=== PATIENT | female | born 1945 | race Caucasian/White ===

== ENCOUNTER 2017-09-11 12:56 | Emergency (ER) | payer MEDICARE, BC ==
[2017-09-11 16:30] VITALS: BP 154/93
--- NOTE | 2017-09-11 17:00 | UC ---
Respiratory Complaint HPI - HPI Summary HPI Summary: C/O sore throat, cough, congestion, going off/ on for [address] difficulty swollowing - History of Current Complaint Chief Complaint: UCGeneralIllness Stated Complaint: ST/HEAD COLD Time Seen by Provider: 09/11/17 16:54 Hx Obtained From: Patient Onset/Duration: Sudden Onset, Lasting Weeks - 3, Still Present Severity Initially: Mild Severity Currently: Moderate Character: Cough: Productive - occasionally. Mostly PND Aggravating Factors: Nothing Alleviating Factors: Nothing Associated Signs And Symptoms: Positive: Chills, URI, Nasal Congestion. Negative: Wheezing Related History: Seasonal Allergies - Allergies/Home Medications Allergies/Adverse Reactions: Allergies Allergy/AdvReac Type Severity Reaction Status Date / Time No Known Allergies Allergy Verified 09/11/17 16:30 Home Medications: Home Medications Calcium W/ Vitamins D & K [Calcium + D + K 750-500-40 mg-Unt-Mcg] 1 tab PO DAILY 09/11/17 [History Confirmed 09/11/17] Fluticasone Furoate-Vilanterol [Breo Ellipta 200-25 Mcg/INH] 1 inh IN DAILY [History Confirmed 09/11/17] Melatonin 10 mg PO BEDTIME 09/11/17 [History Confirmed 09/11/17] Multiple Vitamins W/ Minerals [Hair Skin and Nails Formu] 1 tab PO DAILY [History Confirmed 09/11/17] PMH/Surg Hx/FS Hx/Imm Hx Endocrine History: Diabetes Cardiovascular History: Hypertension Respiratory History: Asthma - Surgical History Surgical History: Yes Surgery Procedure, Year, and Place: 7-8 years ago [facility]- benign Bx-Left breast. BACK SURGERY , RUPTURED DISC -[facility]. TEAR DUCT SURGERY. FALLOPIAN TUBES REMOVED FOR CYSTS. TUBAL LIGATION. TONSILLECTOMY. VARICOSE VEIN SURGERY - Family History Known Family History: Positive: Cardiac Disease, Hypertension, Diabetes - Social History Occupation: Employed Part-time Lives: With Family Alcohol Use: Occasionally Alcohol Amount: 4 oz wine nightly Substance Use Type: None Smoking Status (MU): Never Smoked Tobacco Have You Smoked in the Last Year: No - Immunization History Most Recent Influenza Vaccination: 07/01/14 Review of Systems Constitutional: Chills, Fatigue ENT: Sore Throat, Nasal Discharge Respiratory: Cough Is Patient Immunocompromised?: No All Other Systems Reviewed And Are Negative: Yes Physical Exam Triage Information Reviewed: Yes Appearance: No Pain Distress, Well-Nourished, Ill-Appearing Vital Signs: Initial Vital Signs Temp 97.8 F 09/11/17 16:27 Pulse 83 09/11/17 16:27 Resp 16 09/11/17 16:27 BP 154/93 09/11/17 16:27 Pulse Ox 96 09/11/17 16:27 Vital Signs Reviewed: Yes Eyes: Positive: Conjunctiva Clear ENT: Positive: Pharyngeal erythema, TMs normal Neck: Positive: Tenderness @ - anterior cervical nodes, Enlarged Nodes @ Respiratory: Positive: Lungs clear, Wheezing - expiratory wheeze with coughing. Cardiovascular Exam: Normal Musculoskeletal Exam: Normal Neurological Exam: Normal Psychological Exam: Normal Skin Exam: Normal UC Diagnostic Evaluation - Laboratory O2 Sat by Pulse Oximetry: 96 Respiratory Course/Dx - Differential Dx/Diagnosis Differential Diagnosis/HQI/PQRI: Bronchitis, Laryngitis, Lower Resp Infection, Sinusitis Provider Diagnoses: Acute URI. Acute bronchospasm. Streptococcal pharyngitis Discharge - Discharge Plan Condition: Stable Disposition: HOME Prescriptions: Amoxicillin PO (*) [Amoxicillin 875 MG (*)] 875 mg PO BID #20 tab predniSONE TAB* [Deltasone TAB*] 20 mg PO DAILY #18 tab Patient Education Materials: Strep Throat (ED), Bronchospasm (ED), Prednisone ( By mouth), Amoxicillin (By mouth) Referrals: Amada Koenig [Primary Care Provider] -
== END 2017-09-11 17:45 | disposition home or self-care (01) ==
LOC: UCCORT 12:56
DX: J06.9 Acute upper respiratory infection, unspecified (principal); J98.01 Acute bronchospasm; J02.0 Streptococcal pharyngitis; J45.909 Unspecified asthma, uncomplicated; I10 Essential (primary) hypertension; Z72.89 Other problems related to lifestyle
CPT/HCPCS: 87651; 99212; G0463

== ENCOUNTER 2020-03-28 16:50 | Inpatient (IN) ==
[2020-03-28 18:02] LABS: ABS Basophils 0.1 10^3/ul (0-0.2); ABS Eosinophils 0.2 10^3/ul (0-0.6); ABS Lymphocytes 1.5 10^3/ul (1.0-4.8); ABS Monocytes 0.4 10^3/ul (0-0.8); Eosinophil % 3.8 %; Hematocrit 40 % (35-47); Hemoglobin 13.7 g/dL (12.0-16.0); Lymphocyte % 24.2 %; Mean Corpuscular HGB Conc 34 g/dL (31-36); Mean Corpuscular Hemoglobin 28 pg (27-31); Mean Corpuscular Volume 84 fL (80-97); Mean Platelet Volume 8.7 fL (7.4-10.4); Nucleated Red Blood Cells % 0.1; Platelet Count 232 10^3/uL (150-450); Red Blood Count 4.83 10^6 /uL (3.70-4.87); Red Cell Distribution Width 15 % (10-15); White Blood Count 6.2 10^3/uL (3.5-10.8)
[2020-03-28 18:17] LABS: Activated Partial Thrombo Time 32.1 seconds (26.0-38.0); INR 1.11 (0.82-1.09)
[2020-03-28 18:19] LABS: Albumin 4.3 g/dL (3.2-5.2); Albumin/Globulin Ratio 1.4 (1-3); BUN/Creatinine Ratio 12.1 (8-20); C Reactive Protein 5.82 mg/L (<8.01); EGFR African American 106.2 (>60); EGFR Non-African American 87.8 (>60); Potassium 3.4 mmol/L (3.5-5.0); Total Bilirubin 0.5 mg/dL (0.2-1.0); Total Protein 7.3 g/dL (6.4-8.9)
[2020-03-28] MEDS ORDERED: Gadoteridol (CONTRAST) 279.3 MG/ML 10 ML IV ONE (19:40)
[2020-03-28 20:21] LABS: Erythrocyte Sed Rate 17 mm/Hr (0-29)
[2020-03-28] MEDS ORDERED: Cefepime 1 GM in Dextrose 1 GM/50 ML BAG IV ONE (20:29)
[2020-03-28] MEDS ORDERED: Vancomycin 1,500 MG in NS 0.9% 250 ml 250 ML IVPB ONE ×2 (20:29→22:00)
[2020-03-28] MEDS ORDERED: NS 0.9% 1000 ml BAG 1,000 ML IV ONE (20:33)
[2020-03-28] MEDS ORDERED: NS 0.9% 250 ml 250 ML ONE (21:39)
[2020-03-28] MEDS ORDERED: Ondansetron 4 mg VIAL 2 MG/ML 2 ml VIAL IV PRN (21:46)
[2020-03-28] MEDS ORDERED: Albuterol HFA INHALER 8 gm MDI INH PRN (21:55)
[2020-03-28] MEDS ORDERED: HYDROcodone/ACETAMIN 5/325 mg TAB PO PRN ×2 (21:55→22:17)
[2020-03-28] MEDS ORDERED: Vancomycin per Pharmacy 1 EA NOTE FOLLOW UP PRN (21:59)
[2020-03-28] MEDS ORDERED: hydrALAZINE 20 mg/ml 1 ML Vial IV IV SLOW PU PRN (22:02)
[2020-03-28] MEDS ORDERED: Dextrose 50% Syringe 50 ml 25 GM/50 ML SYRINGE IV PUSH PRN (22:02)
[2020-03-28] MEDS ORDERED: Potassium Chlor 20 meq TAB.ER PO ONE (22:15)
[2020-03-28] MEDS: NS 0.9% 1000 ml BAG 1,000 ML IV SCH (23:49)
[2020-03-29 00:10] LABS: Urine Appearance Clear; Urine Bilirubin Negative (Negative); Urine Blood Negative (Negative); Urine Color Colorless; Urine Glucose Negative (Negative); Urine Ketones Negative (Negative); Urine Nitrite Negative (Negative); Urine Protein Negative (Negative); Urine Specific Gravity 1.004 (1.010-1.030); Urine Urobilinogen Negative (Negative)
[2020-03-29 05:08] LABS: ABS Basophils 0.1 10^3/ul (0-0.2); ABS Eosinophils 0.3 10^3/ul (0-0.6); ABS Lymphocytes 1.5 10^3/ul (1.0-4.8); ABS Monocytes 0.4 10^3/ul (0-0.8); ABS Neutrophils 3.2 10^3/ul (1.5-7.7); Hematocrit 35 % (35-47); Hemoglobin 11.9 g/dL (12.0-16.0); Lymphocyte % 27.7 %; Mean Corpuscular HGB Conc 34 g/dL (31-36); Mean Corpuscular Hemoglobin 29 pg (27-31); Mean Corpuscular Volume 84 fL (80-97); Mean Platelet Volume 8.5 fL (7.4-10.4); Nucleated Red Blood Cells % 0.1; Platelet Count 185 10^3/uL (150-450); Red Blood Count 4.16 10^6 /uL (3.70-4.87); Red Cell Distribution Width 15 % (10-15); White Blood Count 5.4 10^3/uL (3.5-10.8)
[2020-03-29 05:33] LABS: BUN/Creatinine Ratio 10.5 (8-20); Calcium 9.1 mg/dL (8.6-10.3); EGFR African American 125.8 (>60); Potassium 3.9 mmol/L (3.5-5.0)
[2020-03-29] MEDS: Mometasone/Formoter 100/5 MDI INH SCH ×3 (05:42→19:48)
[2020-03-29] MEDS: Fluticasone NASAL SPRAY 50MCG 16 gm SPRAY BTL BOTH NARES SCH ×2 (05:42→06:02)
[2020-03-29] MEDS: MULTIVIT MIN IRON FA HERB PO SCH (05:43)
[2020-03-29] MEDS: [UNRECOGNIZED DRUG - OTHER] PO SCH (05:43)
[2020-03-29] MEDS: Cefepime 1 GM in Dextrose 1 GM/50 ML BAG IV SCH ×2 (08:23→20:53)
[2020-03-29] MEDS: Vancomycin 1,000 MG in NS 0.9% 250 ml 250 ML IV SCH ×3 (09:05→23:45)
[2020-03-29] MEDS ORDERED: Buffered Lidocaine 1% SYRIN 1 ml INTRADERM ONE (11:08)
[2020-03-29] MEDS ORDERED: Ondansetron 4 mg VIAL 2 MG/ML 2 ml VIAL ONE (11:19)
[2020-03-29] MEDS ORDERED: Midazolam 5 mg/5 ml VIAL 1 mg/ml 5 ml VIAL (5 mg) ONE (11:19)
[2020-03-29] MEDS ORDERED: Metoclopramide 5 MG/ML VIAL (10 mg) ONE (11:19)
[2020-03-29] MEDS ORDERED: fentaNYL 100 mcg/2 ml 50 MCG/ML VIAL ONE ×2 (11:19→15:50)
[2020-03-29] MEDS ORDERED: Rocuronium 50 mg VIAL 10 mg/ml 5 ml VIAL (50 mg) ONE (11:19)
[2020-03-29] MEDS ORDERED: Lidocaine 2% PF 5 ML VIAL ONE (11:19)
[2020-03-29] MEDS ORDERED: Propofol 10 MG/ML 20 ML BTL ONE (11:19)
[2020-03-29] MEDS ORDERED: ceFAZolin 2 GM PREMIX 2 GM/50 ML BAG ONE (13:18)
[2020-03-29] MEDS ORDERED: EPHEDrine (Pressors) 50 MG/ML VIAL ONE (13:56)
[2020-03-29] MEDS ORDERED: DiMENhydriNATE IV 50 mg/ml 1 ml VIAL ONE (14:19)
[2020-03-29] MEDS ORDERED: Vancomycin 1,000 MG VIAL ONE (14:41)
[2020-03-29] MEDS ORDERED: HYDROmorphone 1 MG/1 ML SYRINGE ONE (15:10)
[2020-03-29] MEDS ORDERED: Naloxone 0.4 mg VIAL 0.4 mg/ml 1 ml VIAL IV PRN (15:38)
[2020-03-29] MEDS ORDERED: fentaNYL 100 mcg/2 ml 50 MCG/ML VIAL IV PRN (15:38)
[2020-03-29] MEDS ORDERED: Ondansetron 4 mg VIAL 2 MG/ML 2 ml VIAL IV PRN (15:38)
[2020-03-29] MEDS: NS 0.9% 1000 ml BAG 1,000 ML IV SCH (17:48)
[2020-03-30 05:50] LABS: ABS Eosinophils 0.2 10^3/ul (0-0.6); ABS Lymphocytes 1.2 10^3/ul (1.0-4.8); ABS Monocytes 0.5 10^3/ul (0-0.8); ABS Neutrophils 4.3 10^3/ul (1.5-7.7); Eosinophil % 3.2 %; Hematocrit 32 % (35-47); Hemoglobin 10.9 g/dL (12.0-16.0); Lymphocyte % 18.8 %; Mean Corpuscular HGB Conc 34 g/dL (31-36); Mean Corpuscular Hemoglobin 29 pg (27-31); Mean Corpuscular Volume 84 fL (80-97); Mean Platelet Volume 8.8 fL (7.4-10.4); Platelet Count 160 10^3/uL (150-450); Red Blood Count 3.83 10^6 /uL (3.70-4.87); Red Cell Distribution Width 15 % (10-15); White Blood Count 6.2 10^3/uL (3.5-10.8)
[2020-03-30 06:08] LABS: EGFR African American 102.6 (>60); EGFR Non-African American 84.8 (>60)
[2020-03-30 06:13] LABS: Calcium 8.8 mg/dL (8.6-10.3); Magnesium 1.8 mg/dL (1.9-2.7); Potassium 3.9 mmol/L (3.5-5.0)
[2020-03-30 06:14] LABS: Vancomycin Trough 20.9 mcg/mL
[2020-03-30 06:19] LABS: EGFR African American 104.4 (>60); EGFR Non-African American 86.3 (>60)
[2020-03-30] MEDS: Fluticasone NASAL SPRAY 50MCG 16 gm SPRAY BTL BOTH NARES SCH (06:29)
[2020-03-30] MEDS: Mometasone/Formoter 100/5 MDI INH SCH ×2 (06:29→19:49)
[2020-03-30] MEDS: [UNRECOGNIZED DRUG - OTHER] PO SCH (06:30)
[2020-03-30] MEDS: MULTIVIT MIN IRON FA HERB PO SCH (06:30)
[2020-03-30] MEDS ORDERED: Magnesium Sulfate IV 1GM/100ML 1 GM/100 ML BAG IV ONE (07:13)
[2020-03-30] MEDS ORDERED: Vancomycin Trough Check NOTE FOLLOW UP ONE (07:30)
[2020-03-30] MEDS: Vancomycin 1,000 MG in NS 0.9% 250 ml 250 ML IV SCH ×3 (07:54→23:54)
[2020-03-30] MEDS: Cefepime 1 GM in Dextrose 1 GM/50 ML BAG IV SCH ×2 (08:11→21:59)
[2020-03-30] MEDS: NS 0.9% 1000 ml BAG 1,000 ML IV SCH (17:01)
[2020-03-31 05:56] LABS: ABS Eosinophils 0.2 10^3/ul (0-0.6); ABS Lymphocytes 1.1 10^3/ul (1.0-4.8); ABS Monocytes 0.5 10^3/ul (0-0.8); ABS Neutrophils 3.8 10^3/ul (1.5-7.7); Eosinophil % 2.8 %; Hematocrit 33 % (35-47); Hemoglobin 11.1 g/dL (12.0-16.0); Lymphocyte % 19.6 %; Mean Corpuscular HGB Conc 34 g/dL (31-36); Mean Corpuscular Hemoglobin 29 pg (27-31); Mean Corpuscular Volume 84 fL (80-97); Mean Platelet Volume 8.7 fL (7.4-10.4); Platelet Count 160 10^3/uL (150-450); Red Blood Count 3.89 10^6 /uL (3.70-4.87); Red Cell Distribution Width 16 % (10-15); White Blood Count 5.6 10^3/uL (3.5-10.8)
[2020-03-31 06:16] LABS: BUN/Creatinine Ratio 8.2 (8-20); Calcium 8.9 mg/dL (8.6-10.3); EGFR African American 116.3 (>60); EGFR Non-African American 96.1 (>60); Potassium 3.8 mmol/L (3.5-5.0)
[2020-03-31] MEDS: MULTIVIT MIN IRON FA HERB PO SCH (06:17)
[2020-03-31] MEDS: [UNRECOGNIZED DRUG - OTHER] PO SCH (06:17)
[2020-03-31] MEDS: Mometasone/Formoter 100/5 MDI INH SCH ×2 (06:18→18:26)
[2020-03-31] MEDS: Fluticasone NASAL SPRAY 50MCG 16 gm SPRAY BTL BOTH NARES SCH (06:18)
[2020-03-31] MEDS: Cefepime 1 GM in Dextrose 1 GM/50 ML BAG IV SCH (09:12)
[2020-03-31] MEDS: NS 0.9% 1000 ml BAG 1,000 ML IV SCH (12:36)
[2020-03-31 14:12] LABS: C Reactive Protein 86.8 mg/L (<8.01)
[2020-03-31] MEDS: Cefepime 2 GM in Dextrose 2 GM/50 ML BAG IV SCH (20:51)
[2020-04-01] MEDS: NS 0.9% 1000 ml BAG 1,000 ML IV SCH (02:53)
[2020-04-01] MEDS: Fluticasone NASAL SPRAY 50MCG 16 gm SPRAY BTL BOTH NARES SCH (05:49)
[2020-04-01] MEDS: Mometasone/Formoter 100/5 MDI INH SCH ×2 (06:00→18:07)
[2020-04-01] MEDS: MULTIVIT MIN IRON FA HERB PO SCH (06:03)
[2020-04-01] MEDS: [UNRECOGNIZED DRUG - OTHER] PO SCH (06:03)
[2020-04-01] MEDS ORDERED: Senna TAB 8.6 mg TAB PO PRN (07:25)
[2020-04-01] MEDS ORDERED: Magnesium Hydroxide LIQ 30 ML UDC PO PRN (07:25)
[2020-04-01] MEDS ORDERED: Polyethylene Glycol 3350 17 GM PACKET PO PRN (07:25)
[2020-04-01] MEDS: Cefepime 2 GM in Dextrose 2 GM/50 ML BAG IV SCH ×2 (08:47→17:06)
[2020-04-01] MEDS ORDERED: Vancomycin Trough Check NOTE FOLLOW UP ONE (11:30)
[2020-04-01 15:29] VITALS: BP 143/63
== END 2020-04-01 18:40 | disposition home health service (06) | DRG 908 ==
LOC: ED 16:50 → SSU 21:39
PROVIDERS: ADMIT Internal Medicine; ATTEND Internal Medicine
PROC: O.NEI&D (2020-03-29 11:00)